=== PATIENT | female | born 2000 | race Caucasian/White ===

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

== ENCOUNTER → 2021-01-30 | Outpatient (CLI) | payer OTHER ==
--- NOTE | 2021-01-30 17:24 | XR ---
PROCEDURE: XR Hip Bilateral and AP pelvis - 5V DATE AND TIME: 01/30/2021 5:09 PM CLINICAL INDICATION: PHH; R10.2 TECHNIQUE: AP pelvis, right hip coned AP and frog-leg lateral, left hip coned AP and frog-leg lateral COMPARISON: None FINDINGS: There is no fracture or malalignment. The sacroiliac joints have normal appearance as do the hips and the pubic symphysis. The soft tissues are unremarkable. IMPRESSION: Negative examination.
== END | disposition home or self-care (01) ==
LOC: RADXRMAIN 16:44
PROVIDERS: ATTEND Family Medicine
DX: R10.2 Pelvic and perineal pain (principal)
CPT/HCPCS: 73521